=== PATIENT | male | born 1970 | race American Indian/Alaskan Native ===

== ENCOUNTER 2016-10-27 11:52 | Emergency (ER) | payer OTHER ==
[2016-10-27 11:53] VITALS: BMI 25.8
[2016-10-27 11:58] VITALS: BP 127/78; PULSE 77; RESP 18; TEMP 98; O2SAT 97
[2016-10-27] MEDS ORDERED: Lidocaine 5% Patch TD STA (12:27)
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
[2016-10-27] MEDS ORDERED: Lidocaine 5% Patch TD ONE (12:32)
== END 2016-10-27 12:58 | disposition home or self-care (01) ==
LOC: SUPCPDRO 11:52 → C.ER 11:52
DX: M54.5 Low back pain (principal)

== ENCOUNTER 2017-01-21 15:53 | Emergency (ER) | payer OTHER ==
[2017-01-21 15:53] VITALS: BMI 25.8
[2017-01-21 15:58] VITALS: BP 137/68; PULSE 65; RESP 16; TEMP 99; O2SAT 97
--- NOTE | 2017-01-21 17:05 | C.PDOC ---
Time Seen by Provider: 01/21/17 16:09 Chief Complaint (Nursing): Back Pain Past Medical History Vital Signs: Last Vital Signs Temp 99 F 01/21/17 15:56 Pulse 65 01/21/17 15:56 Resp 16 01/21/17 15:56 BP 137/68 01/21/17 15:56 Pulse Ox 97 01/21/17 15:56 Family History: States: Unknown Family Hx - Social History Hx Alcohol Use: No Hx Substance Use: No - Immunization History Hx Tetanus Toxoid Vaccination: Yes Hx Influenza Vaccination: Yes Hx Pneumococcal Vaccination: Yes ED Course And Treatment O2 Sat by Pulse Oximetry: 97 Progress Note: On re-eval, pt is afebrile, hemnodynamicaly stable. Non-toxic. Ambulatory in ED with stable gait. neurologicaly intact. Records from previous visits review. Pt ashc linical findings c/w chronic lower back pain exacerbation. Pt advised and ref. to f/u with PMD, PM in 2-3 days for re- eavluation. Return to Ed if any worsening or new changes. Disposition Counseled Patient/Family Regarding: Diagnosis, Need For Followup, Rx Given - Disposition Referrals: [facility] [Provider Group] [facility] [Provider Group] Disposition Time: 17:03 Condition: STABLE Additional Instructions: Follow up with Pain Management in 2-3 days for re-evaluation. return to ED if any worsening or new changes. Prescriptions: Ibuprofen [Motrin Tab] 600 mg PO Q6 #20 tab Methocarbamol [Robaxin] 500 mg PO TID #14 tab traMADol [Ultram] 50 mg PO TID #7 tab Instructions: Chronic Back Pain (ED) - Clinical Impression Clinical Impression: Chronic lower back pain
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
== END 2017-01-21 17:37 | disposition home or self-care (01) ==
LOC: C.ER 15:53
DX: G89.29 Other chronic pain (principal); M54.5 Low back pain

== ENCOUNTER 2018-01-11 13:17 | Emergency (ER) | payer MEDICAID, OTHER ==
[2018-01-11 13:17] VITALS: BMI 25.8
[2018-01-11 13:47] VITALS: TEMP 98.5
[2018-01-11 15:50] LABS: BASO % 0.7 % (0.0-2.0); EOS # 0.1 K/uL (0.0-0.7); EOS % 1.2 % (0.0-4.0); HEMOGLOBIN 15.6 g/dL (12.0-18.0); LYMPH # 1.7 K/uL (1.0-4.3); LYMPH % 30.5 % (20.0-40.0); MEAN CELL VOLUME 84.7 fL (80.0-94.0); MEAN CORPUSCULAR HEMOGLOBIN 28.5 pg (27.0-31.0); MEAN CORPUSCULAR HGB CONC 33.6 g/dL (33.0-37.0); MEAN PLATELET VOLUME 7.2 fL (7.2-11.7); MONO # 0.5 K/uL (0.0-0.8); MONO % 9.3 % (0.0-10.0); NEUT # 3.2 K/uL (1.8-7.0); NEUT % 58.3 % (50.0-75.0); NRBC % 0.4 % (0.0-2.0); RBC 5.48 Mil/uL (4.40-5.90); RED CELL DISTRIBUTION WIDTH 13.5 % (11.5-14.5); WHITE BLOOD COUNT 5.6 K/uL (4.8-10.8)
--- NOTE | 2018-01-11 15:53 | C.PDOC ---
Time Seen by Provider: 01/11/18 15:08 Chief Complaint (Nursing): Syncope Past Medical History Vital Signs: Last Vital Signs Temp 98.5 F 01/11/18 13:43 Pulse 73 01/11/18 13:43 Resp 20 01/11/18 13:43 BP 134/96 H 01/11/18 13:43 Pulse Ox 96 01/11/18 13:43 Family History: States: Unknown Family Hx - Social History Hx Alcohol Use: No Hx Substance Use: No - Immunization History Hx Tetanus Toxoid Vaccination: Yes Hx Influenza Vaccination: No Hx Pneumococcal Vaccination: No ED Course And Treatment O2 Sat by Pulse Oximetry: 96 Disposition - Disposition
--- NOTE | 2018-01-11 15:59 | C.PDOC ---
History Of Present Illness 47 y/o male presents to ED with c/o back of left ear pain since 05/2017 after falling down the stairs. Patient states yesterday he was sitting on couch and "fainted" for an unknown period of time and reports it was "possibly because of the heat". Patient did not follow up s/p fall in 05/2017 and currently denies headache, nausea, vomiting, vision changes, chest pain, dizziness or any other complaints at this time. Patient is a poor historian Time Seen by Provider: 01/11/18 15:08 Chief Complaint (Nursing): Syncope History Per: Patient History/Exam Limitations: None Onset/Duration Of Symptoms: Days Current Symptoms Are (Timing): Still Present Quality (Ear): Pain W/Touch. denies: Discharge Past Medical History Reviewed: Historical Data, Nursing Documentation, Vital Signs Vital Signs: Last Vital Signs Temp 98.5 F 01/11/18 13:43 Pulse 85 01/11/18 18:18 Resp 14 01/11/18 18:18 BP 147/85 01/11/18 18:18 Pulse Ox 96 01/11/18 18:40 - Medical History PMH: No Chronic Diseases Surgical History: No Surg Hx Family History: States: No Known Family Hx - Social History Hx Alcohol Use: No Hx Substance Use: No - Immunization History Hx Tetanus Toxoid Vaccination: Yes Hx Influenza Vaccination: No Hx Pneumococcal Vaccination: No Review Of Systems Constitutional: Negative for: Fever, Chills ENT: Positive for: Ear Pain. Negative for: Ear Discharge Cardiovascular: Negative for: Chest Pain Respiratory: Negative for: Shortness of Breath Gastrointestinal: Negative for: Nausea, Vomiting Neurological: Negative for: Headache, Dizziness Physical Exam - Physical Exam Appears: Non-toxic, No Acute Distress Skin: Warm, Dry, No Rash Head: Atraumatic, Normacephalic Eye(s): bilateral: Normal Inspection Ear(s): Left: Other (Left mastoid tenderness on palpation ), Bilateral: Normal Oral Mucosa: Moist Throat: Normal, No Erythema, No Exudate Neck: Normal ROM, No Midline Cervical Tenderness, Supple Cardiovascular: Rhythm Regular, No Murmur Respiratory: Normal Breath Sounds, No Rales, No Rhonchi, No Wheezing Gastrointestinal/Abdominal: Soft, No Tenderness, No Guarding, No Rebound Neurological/Psych: Oriented x3, Normal Speech, Normal Cognition, Normal Motor, Normal Sensation ED Course And Treatment - Laboratory Results Result Diagrams: 01/11/18 15:46 01/11/18 15:46 ECG: Interpreted By Me, Viewed By Me ECG Rhythm: Sinus Rhythm Interpretation Of ECG: Left axis deviation Rate From EC O2 Sat by Pulse Oximetry: 96 (RA) Pulse Ox Interpretation: Normal Medical Decision Making Medical Decision Makin pt feeling better. pain resolved. pt now c/o moist area in between toes, will d/c with lotrimin. Disposition Counseled Patient/Family Regarding: Studies Performed, Diagnosis, Need For Followup, Rx Given - Disposition Referrals: [facility] [Outside] Disposition: HOME/ ROUTINE Disposition Time: 17:30 Condition: GOOD Additional Instructions: Please follow up in medical clinic; call for an appointment. Tylenol for pain if needed. Use Lotrimin between toes 1-2 times per day. Keep area dry. 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 - Scribe Statement The provider has reviewed the documentation as recorded by the Kb Bobby All medical record entries made by the Savanahibellen were at my direction and personally dictated by me. I have reviewed the chart and agree that the record accurately reflects my personal performance of the history, physical exam, medical decision making, and the department course for this patient. I have also personally directed, reviewed, and agree with the discharge instructions and disposition.
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
[2018-01-11 16:18] LABS: ALB/GLOB RATIO 1.5 (1.0-2.1); ALBUMIN 4.5 g/dL (3.5-5.0); ALT/SGPT 35 U/L (21-72); AST/SGOT 33 U/L (17-59); BLOOD UREA NITROGEN 17 mg/dL (9-20); CALCIUM 9.2 mg/dl (8.6-10.4); GFR AFRICAN-AMERICAN > 60; GFR NON-AFRICAN AMERICAN > 60
[2018-01-11 17:03] LABS: SQUAMOUS EPITHIAL < 1 /hpf (0-5); URINE BILIRUBIN NEGATIVE (NEGATIVE); URINE BLOOD NEGATIVE (NEGATIVE); URINE CLARITY Hazy (Clear); URINE COLOR Yellow (YELLOW); URINE GLUCOSE (UA) NORMAL (Normal); URINE LEUKOCYTE ESTERASE NEG Leu/uL (Negative); URINE PROTEIN NEGATIVE (NEGATIVE); URINE UROBILINOGEN NORMAL mg/dL (0.2-1.0)
[2018-01-11 17:27] LABS: BARBITURATES, UR NEGATIVE (NEGATIVE); BENZODIAZEPINES, UR NEGATIVE (NEGATIVE); OPIATES, UR NEGATIVE (NEGATIVE); PHENCYCLIDINE, UR NEGATIVE (NEGATIVE)
[2018-01-11 18:19] VITALS: BP 147/85; PULSE 85; RESP 14
[2018-01-11 18:39] VITALS: O2SAT 96
== END 2018-01-11 18:18 | disposition home or self-care (01) ==
LOC: C.ER 13:17
DX: R55 Syncope and collapse (principal); B35.3 Tinea pedis
CPT/HCPCS: 70450; 80053; 81001; 85025; 99285; G0480

== ENCOUNTER 2018-01-18 18:30 | Emergency (ER) | payer MEDICAID, OTHER ==
[2018-01-18 18:31] VITALS: BMI 25.8
[2018-01-18] MEDS ORDERED: Bacitracin 500 Units/gm Oint Foilpak UD TOP ONE (19:15)
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
[2018-01-18] MEDS ORDERED: Bacitracin 500 Units/gm Oint Foilpak UD ONE (19:18)
[2018-01-18 19:33] VITALS: BP 132/85; PULSE 84; RESP 16; TEMP 98.5; O2SAT 98
== END 2018-01-18 19:32 | disposition home or self-care (01) ==
LOC: C.ER 18:30
DX: L84 Corns and callosities (principal)